=== PATIENT | female | born 2000 | race Caucasian/White ===

== ENCOUNTER 2024-07-11 14:49 | Emergency (ER) | payer BC, SELFPAY ==
--- NOTE | ~2024-07-11 | XR_ITS ---
EXAMINATION: XR sacrum coccyx min 2V DATE: 07/11/2024 15:20 INDICATION: Sacrococcygeal pain. Fall. TECHNIQUE: 3 views of the sacrum and coccyx were obtained. COMPARISON: None. FINDINGS: Alignment is normal. No fracture. Joint spaces are normal. IMPRESSION: 1. No fracture. Reviewed, dictated and finalized at location A. RAFT QUALITY CONTROL INSPECTOR IMPRESSION: 1. No fracture.
--- NOTE | ~2024-07-11 | CT_ITS ---
EXAMINATION: CT cervical spine wo con DATE: 07/11/2024 15:17 INDICATION: Head injury. TECHNIQUE: Computed tomography (CT) of the cervical spine was performed without intravenous contrast. Automated exposure control and iterative reconstruction technique were employed. The dose-length pro duct was 388.33 mGy-cm. COMPARISON: None FINDINGS: There is kyphosis of cervical spine. There is 3 degrees levocurvature of cervical spine. Ve rtebral body heights are normal. Intervertebral disc heights are normal. At C7-T1, there is mild bila teral facet joint osteoarthritis. No central canal stenosis or neural foraminal stenosis. IMPRESSION: 1. No fracture. Reviewed, dictated and finalized at location A. [employer] SPECIALIST IMPRESSION: 1. No fracture.
--- NOTE | ~2024-07-11 | CT_ITS ---
EXAMINATION: CT brain wo con DATE: 07/11/2024 15:17 INDICATION: Head injury. TECHNIQUE: Computed tomography (CT) of the head was performed without intravenous contrast. The mA wa s adjusted according to patient size. Iterative reconstruction technique was employed. The dose-lengt h product was 605.33 mGy-cm. COMPARISON: None FINDINGS: There is no intracranial hemorrhage, acute infarction, or abnormal intracranial mass lesion . The ventricles are normal in size. The orbits are normal. The paranasal sinuses are clear. The mast oid air cells are normal. IMPRESSION: 1. Normal brain. Reviewed, dictated and finalized at location A. LER RUNNER IMPRESSION: 1. Normal brain.
[2024-07-11 14:55] VITALS: BP 136/83; PULSE 76; RESP 18; TEMP 36.6; O2SAT 100
--- NOTE | 2024-07-11 14:59 | ED.HEATRA ---
HPI - Head Injury General Chief complaint: Head Injury Stated complaint: head injury Time Seen by Provider: 07/11/24 14:59 Source: patient Mode of arrival: ambulatory Limitations: no limitations History of Present Illness HPI Narrative: Patient is a 23-year-old female who presents to the ED with report of a head injury. Patient reports she slipped and fell down a set of stairs, approximately 20 stairs last night. She did hit her head. Denied LOC. Started to have a mild headache last night, but woke up this morning with worsening headache. Also reports having pain to her neck and her tailbone. Denies numbness, weakness, dizziness, lightheadedness, vision changes. Related Data Allergies Allergy/AdvReac Type Severity Reaction Status Date / Time No Known Allergies Allergy Verified 07/11/24 14:56 Review of Systems Review of Systems: All systems reviewed & are unremarkable except as noted in HPI. All systems reviewed & are unremarkable except as noted in HPI and below Exam Narrative: GENERAL: Well-appearing, obese with BMI of 34.4, and in no acute distress. HEAD: Normocephalic, atraumatic. EYES: PERRL/EOMI, conjunctiva clear NECK: C-collar in place. Mild tenderness throughout right paraspinal musculature. No significant midline spinal tenderness. CHEST: Clear to auscultation. ?No respiratory distress. HEART: Regular rate and rhythm.? MSK: No significant tenderness throughout thoracic or lumbar midline spine. No palpable bony deformities or step-offs. Minimal tenderness over coccyx. NEURO: ?Alert and oriented x3. No focal deficits. Course Vital Signs Vital signs: Vital Signs Temperature 97.9 F 07/11/24 14:55 Pulse Rate 76 07/11/24 14:55 Respiratory Rate 18 07/11/24 14:55 Blood Pressure 136/83 07/11/24 14:55 Pulse Oximetry 100 07/11/24 14:55 Oxygen Delivery Room Air 07/11/24 14:55 Temperature 97.9 F 07/11/24 14:55 Pulse Rate 76 07/11/24 14:55 Respiratory Rate 18 07/11/24 14:55 Blood Pressure 136/83 07/11/24 14:55 Pulse Oximetry 100 07/11/24 14:55 Oxygen Delivery Room Air 07/11/24 14:55 MDM - Head Injury MDM Narrative Medical decision making narrative: MSE by BLAIR in triage. Care resumed by myself. Status post slip and fall down stairs. HI, no LOC. Complaining of headache, neck pain, pain to tailbone. Patient neurovascularly intact. No acute distress. Vital signs are stable. No focal deficits seen on exam. No gross deformities. CT brain and cervical spine without acute traumatic findings. C-collar removed in the ED. X-ray of sacrum/coccyx negative for fracture. Patient updated on imaging findings. Feel she is safe for discharge home. Will discharge with lidocaine patches in a few muscle relaxers for home use. Advised to continue Tylenol/ibuprofen. Given return precautions. D/C in stable condition. Medical Records Attestation: I reviewed the patient's medical records. Imaging Data Attestation: I personally reviewed and interpreted this imaging study as follows: Radiologist's impression: ITS Impressions Head CT 07/11/24 15:18 IMPRESSION: 1. Normal brain. Cervical Spine CT 07/11/24 15:19 IMPRESSION: 1. No fracture. Sacrum and Coccyx X-Ray 07/11/24 15:22 IMPRESSION: 1. No fracture. Discharge Plan Discharge Clinical Impression: Fall down stairs Qualifiers: Encounter type: initial encounter Qualified Code(s): W10.8XXA - Fall (on) (from) other stairs and steps, initial encounter Closed head injury Qualifiers: Encounter type: initial encounter Qualified Code(s): S09.90XA - Unspecified injury of head, initial encounter Cervical strain Qualifiers: Encounter type: initial encounter Qualified Code(s): S16.1XXA - Strain of muscle, fascia and tendon at neck level, initial encounter Coccyx contusion Qualifiers: Encounter type: initial encounter Qualified Code(s): S30.0XXA - Contusion of lower back and pelvis, initial encounter Patient Disposition: Home, Self-Care Condition: Stable Instructions: Antibiotic Form, Cervical Strain (ED), Coccyx Injury (ED), Head Injury (ED) Additional Instructions: Your imaging did not show any evidence of fracture. You will likely be sore over the next few days. Continue Tylenol, ibuprofen, lidocaine patches to area of pain. Take muscle relaxers as needed and prescribed. Recommend taking these at night as they may cause sedation. Do not drive, operate heavy machinery, drink alcohol while on muscle relaxers as this may cause further sedation. Return to the ED if you experience worsening or severe pain, recurrent injury, severe dizziness, passing out, numbness, going to the bathroom without meaning to, or any other symptoms of concern. Prescriptions: New lidocaine 5 % adhesive patch,medicated 1 patch topical DAILY Qty: 15 0RF Rx Instructions: leave on most painful area for up to 12 hrs cyclobenzaprine 5 mg tablet 5 mg PO TID PRN (Reason: muscle spasm) Qty: 10 0RF Follow-up/Referrals: PHYSICIAN,PSYCHOLOGIST SOCIAL [Non-Staff] - Stand Alone Forms: Work/School Release IP Time of Disposition: 15:37
== END 2024-07-11 15:56 | disposition home or self-care (01) ==
LOC: ANHED 15:49
PROVIDERS: Emergency Provider Physician Assistant
DX: S09.90XA Unspecified injury of head, initial encounter (principal); S16.1XXA Strain of muscle, fascia and tendon at neck level, initial encounter; S30.0XXA Contusion of lower back and pelvis, initial encounter; W10.8XXA Fall (on) (from) other stairs and steps, initial encounter
CPT/HCPCS: 70450; 72125; 72220; 99284